=== PATIENT | male | born 1995 | race Caucasian/White ===

== ENCOUNTER → 2024-02-02 08:55 | Outpatient (BNVA) | payer MEDICAID, SELFPAY | PROVIDERS: Family Provider Pediatrics Adolescent Medicine; Referring Provider Family Medicine; Visit Provider Physician Assistant | DX: M75.41 Impingement syndrome of right shoulder | CPT/HCPCS: 20610; 73030; 99203; J3301 ==

== ENCOUNTER → 2024-06-04 13:10 | Outpatient (BNVA) | payer MEDICAID, SELFPAY | PROVIDERS: Family Provider Pediatrics Adolescent Medicine; Visit Provider Physician Assistant | DX: M75.41 Impingement syndrome of right shoulder (principal); M54.9 Dorsalgia, unspecified | CPT/HCPCS: 99213 ==